=== PATIENT | female | born 1970 | race Caucasian/White ===

== ENCOUNTER 2023-02-05 12:37 | Outpatient (CLI) | payer BC, SELFPAY ==
--- NOTE | 2023-02-05 12:47 | ECG_ITS ---
Measurements Intervals [place] Rate: 95 P: 52 VT: 146 QRS: 1 QRSD: 81 T: 53 QT: 359 QTc: 452 Interpretive Statements SINUS RHYTHM LOW QRS VOLTAGE IN PRECORDIAL LEADS BORDERLINE T WAVE ABNORMALITY- ANTEROLAT/HIGH LAT LEADS BASELINE WANDER- I, II, AVR, AVL, AVF BORDERLINE ECG NO PREVIOUS ECG AVAILABLE FOR COMPARISON Electronically Signed On 02-05-2023 13:00:46 [employer] by Harpreet Benson D.O.
== END 2023-02-05 12:38 | disposition home or self-care (01) ==
PROVIDERS: PCP Family Medicine; Visit Provider Family Medicine
DX: R07.9 Chest pain, unspecified (principal); R94.31 Abnormal electrocardiogram [ECG] [EKG]
CPT/HCPCS: 93005

== ENCOUNTER 2023-03-05 11:52 | Outpatient (CLI) | payer BC, SELFPAY ==
[2023-03-05 12:50] LABS: Cholesterol 235 mg/dL (0-200); HDL Direct 52 mg/dL; Triglycerides 116 mg/dL (<150)
[2023-03-05 13:00] LABS: LDL Cholesterol Direct 136 mg/dL
== END 2023-03-05 11:53 | disposition home or self-care (01) ==
LOC: ANHLAB 11:54
PROVIDERS: PCP Family Medicine; Visit Provider Internal Medicine Cardiovascular Disease
DX: E78.5 Hyperlipidemia, unspecified (principal)
CPT/HCPCS: 36415; 80061

== ENCOUNTER 2023-03-13 08:35 | Outpatient (CLI) | payer BC, SELFPAY ==
--- NOTE | 2023-03-13 08:39 | EST_ITS ---
Patient Info Name: Millicent Jane Age: 52 years : 1970 Gender: Female Ht: 68 in Wt: 240 lbs BSA: 2.33 m2 HR: 84 bpm BP: 132 / 87 mmHg Heart Rhythm: Sinus Rhythm Technical Quality: Good Exam Date: 03/13/2023 8:59 AM Exam Location: [facility] Patient Status: Outpatient Admit Date: 03/13/2023 Staff Ordering Physician: Harpreet Benson DO Oil Well Engineer: Bianca Petersen RDCS Attending Provider: Referring Physician: Marcelino LAKE; Exam Type: CA stress echo Study Info Indications R07.9 - Chest pain, unspecified Treadmill exercise stress echocardiogram is performed. Summary 1. 1. Negative Chinedu exercise stress test for ischemic ST changes by ECG criteria. 2. 2. Good functional capacity, achieving 8.9 METs of workload. 3. 3. Appropriate HR response to exercise. 4. 4. Appropriate HR recovery at 1 minute post exercise. 5. 5. Negative stress echocardiogram for ischemia by wall motion analysis. 6. 6. Patient informed of the above results. Stress Echo Findings Left Ventricle Appropriate increase in LV endocardial thickening with systole. Appropriate augmentation of contractility with systole. No wall motion abnormality. Left Ventricle Normal LV systolic function, no wall motion abnormality. Protocol: Chinedu Stress ECG Details Stage: REST Duration (min): 1 min : 19 sec Speed (mph): 0.0 Grade (%): 0 HR (bpm): 83 SBP (mmHg): 132 DBP (mmHg): 87 METS: --- Stage: REST Duration (min): 15 min : 32 sec Speed (mph): 0.0 Grade (%): 0 HR (bpm): 94 SBP (mmHg): 132 DBP (mmHg): 87 METS: --- Stage: STAGE 1 Duration (min): 1 min : 0 sec Speed (mph): 1.7 Grade (%): 10 HR (bpm): 111 SBP (mmHg): 132 DBP (mmHg): 87 METS: --- Stage: STAGE 1 Duration (min): 2 min : 0 sec Speed (mph): 1.7 Grade (%): 10 HR (bpm): 118 SBP (mmHg): 132 DBP (mmHg): 87 METS: --- Stage: STAGE 1 Duration (min): 3 min : 0 sec Speed (mph): 1.7 Grade (%): 10 HR (bpm): 125 SBP (mmHg): 166 DBP (mmHg): 90 METS: --- Stage: STAGE 2 Duration (min): 1 min : 0 sec Speed (mph): 2.5 Grade (%): 12 HR (bpm): 129 SBP (mmHg): 166 DBP (mmHg): 90 METS: --- Stage: STAGE 2 Duration (min): 2 min : 0 sec Speed (mph): 2.5 Grade (%): 12 HR (bpm): 133 SBP (mmHg): 189 DBP (mmHg): 91 METS: --- Stage: STAGE 2 Duration (min): 3 min : 0 sec Speed (mph): 2.5 Grade (%): 12 HR (bpm): 139 SBP (mmHg): 189 DBP (mmHg): 91 METS: --- Stage: STAGE 3 Duration (min): 1 min : 0 sec Speed (mph): 3.4 Grade (%): 14 HR (bpm): 147 SBP (mmHg): 189 DBP (mmHg): 91 METS: --- Stage: STAGE 3 Duration (min): 1 min : 2 sec Speed (mph): 0.0 Grade (%): 0 HR (bpm): 148 SBP (mmHg): 189 DBP (mmHg): 91 METS: --- Stage: RECOVERY Duration (min): 0 min : 57 sec Speed (mph): 0.0 Grad
== END 2023-03-13 08:36 | disposition home or self-care (01) ==
PROVIDERS: PCP Family Medicine; Visit Provider Internal Medicine Cardiovascular Disease
DX: R07.9 Chest pain, unspecified (principal)
CPT/HCPCS: 93351

== ENCOUNTER → 2023-04-02 08:17 | Outpatient (CLI) | payer BC, SELFPAY ==
--- NOTE | ~2023-04-02 | MR_ITS ---
EXAMINATION: MR shoulder LT wo con DATE: 04/02/2023 09:15 INDICATION: Left shoulder impingement TECHNIQUE: Magnetic resonance imaging (MRI) of the left shoulder was performed without intravenous co ntrast. Sequences included axial PD-weighted FS FSE, coronal oblique PD-weighted FS FSE, coronal obli que T2-weighted FS FSE, sagittal PD-weighted FS FSE, and sagittal T1-weighted SE. COMPARISON: Left shoulder radiographs dated 02/17/2023 FINDINGS: Coracoacromial arch: The acromion undersurface is curved in morphology (type II) with tiny anterior subacromial spur. The coracoacromial ligament is normal. Mild acromioclavicular osteoarthritis. Rotator cuff: Mild to moderate supraspinatus and infraspinatus tendinopathy without discrete tear. The subscapulari s and teres minor tendons are normal. There is prominent feathery muscular edema of the supraspinatus and infraspinatus muscle bellies. There is mild atrophy at the posterior supraspinatus muscle belly with some architectural distortion to the muscle fibers proximally consistent with a moderate grade m uscle strain/partial tear and suggesting edema in the infraspinatus also related to muscle strain. No evident impinging lesions along the course of the suprascapular nerve to suggest denervation change related to impingement. Biceps tendon, glenoid labrum and glenohumeral cartilage: Long head of the biceps tendon is normal. Glenoid labrum is normal. Glenohumeral cartilage is normal. Fluid: Physiologic amount of fluid in the glenohumeral joint and biceps tendon sheath. No loose osteochondr al bodies. Small amount of fluid in the subacromial/subdeltoid bursa as well as in the subcoracoid bu rsa consistent with mild bursitis. Bones: Normal marrow signal with no edema, fracture or abnormal marrow replacing process. IMPRESSION: 1. Moderate grade supraspinatus muscle strain/partial tear and low-grade strain of the infraspinatus muscle. 2. Mild to moderate tendinopathy without discrete tear at the associated supraspinatus and infraspina tus tendons. 3. Mild subacromial/subdeltoid and subcoracoid bursitis. Reviewed, dictated and finalized at location L. IMPRESSION: 1. Moderate grade supraspinatus muscle strain/partial tear and low-grade strain of the infraspinatus muscle. 2. Mild to moderate tendinopathy without discrete tear at the associated supras pinatus and infraspinatus tendons. 3. Mild subacromial/subdeltoid and subcoracoid bursitis.
== END ==
PROVIDERS: PCP Family Medicine; Visit Provider Orthopaedic Surgery
DX: M25.812 Other specified joint disorders, left shoulder (principal); M75.52 Bursitis of left shoulder
CPT/HCPCS: 73221

== ENCOUNTER 2023-07-27 02:30 | Day surgery (SDC) | payer BC, SELFPAY ==
[2023-07-22 10:41] VITALS: BMI 36.5
--- NOTE | 2023-07-22 10:48 | PC.NURSE ---
Report to the Outpatient Waiting Room, entrance under the green pavilion located off [facility], at time 0600 on date 07/27/23. Planned Procedure Time: 0730. Time changes happen often and if your time is changed the preop area will call you the afternoon before. - You and your visitor will be asked to self-screen and do not enter if you have any COVID symptoms. - A mask is optional within the hospital at this time. Patients may have clear liquids (water, carbonated beverages, clear teas, apple juice) until 3 hours prior to surgery with a maximum of 20 ounces. - No food from midnight until time of surgery Take the following medications with a SIP of water the morning of surgery: CITALOPRAM, LEVOTHYROXINE DO NOT STOP ANY OF YOUR OTHER PRESCRIPTION MEDICATIONS PRIOR TO SURGERY ?EXCEPT THE FOLLOWING Medications to discontinue per physician: N/A Date to take last dose: N/A Please no make-up, nail serbian, hairspray, perfume, deodorant, or body powder the day of surgery. No jewelry (including any body piercings) or valuables the day of surgery, leave them at home. Please take a shower or bath the night before, or the morning of, surgery with an antibacterial soap. Wear comfortable, loose fitting clothing. - Jewelry must be removed prior to entering the operating room. Rings and piercings that are not removed may be cut off. - The hospital will not accept responsibility for valuables. - Please leave all valuables, including medications, at home the day of surgery. If you are going home after surgery, a licensed pile driver must drive you home. - NO public transportation without another adult if you receive anesthesia. - We recommend that an adult stay with you for 24 hours following discharge. - We also recommend that you do not drive, make important decision, drink alcoholic beverages, or take any drugs that were not prescribed by your health care provider for at least 24 hours after your discharge time. Follow any additional instructions given to you from your surgeon. If you or anyone in your household have experienced Covid symptoms in the past week, please notify your surgeon or the nurse liaison at the phone number below for possible testing. Telephone instructions given to PT - NI PEARSON and asked if any additional questions and then verbalized understanding. Patient advised to call surgeon office or pre surgery nurse liaison [phone] if any additional questions.
[2023-07-27] VITALS (8 sets, daily range): BP systolic 97–135; BP diastolic 64–88; PULSE 79–97; RESP 12–20; TEMP 36.1–36.8; O2SAT 95–99
[2023-07-27] MEDS: ACETAMINOPHEN 500 MG TABLET 1000 MG PO (06:46)
--- NOTE | 2023-07-27 06:47 | WPDANESEPPF ---
Anes - Initial Pre Proc Eval Procedure: Operation Date: 07/27/23 07:30 Proposed Procedures p Left Shoulder Arthroscopy, with Acromioplasty Distal Clavicle Excision - Moy Albarran MD Date/Time: 07/27/23 06:47 Surgeon: Moy Albarran MD Pre Op Diagnosis: left shoulder ac arthritis, impingement Patient Data Age: 53 Gender: F Height: 1.73 m Weight: 108.9 kg Allergies Allergy/AdvReac Type Severity Reaction Status Date / Time codeine Allergy Severe Vomiting Verified 07/27/23 06:42 Home Medications Medication Instructions Recorded Confirmed Type cetirizine 10 mg tablet (All Day 10 mg PO DAILY 12/29/19 07/27/23 History Allergy (cetirizine)) citalopram 40 mg tablet 40 mg PO DAILY #90 tabs 02/18/23 07/27/23 Rx levothyroxine 112 mcg tablet 112 mcg PO DAILY #90 tabs 03/19/23 07/27/23 Rx esomeprazole magnesium 20 mg 20 mg PO DAILY #90 caps 04/14/23 07/27/23 Rx capsule,delayed release (Nexium) Patient hx anesthesia problems: none Family hx anesthesia problems: none Results Review: All pre-operative results and documents have been reviewed as part of the pre-operative evaluation. [facility] Past Medical History Medical History Allergies Anxiety Arthritis of left acromioclavicular joint Environmental allergies BLANCA (generalized anxiety disorder) Hypothyroidism determined by thyroid function test Impingement of left shoulder Thyroid disorder Tonsil stone Surgical History Surgical History History of hysterectomy 2007 Family History Family History Mother Diabetes mellitus Ovarian cancer Cancer Hypertension Depression Heart disease Grandparent Family history of cardiovascular disease Acute myocardial infarction Cancer Diabetes mellitus Hypertension Depression Heart disease Other Family history of cardiovascular disease Acute myocardial infarction Diabetes mellitus Hypertension Depression Heart disease Father Heart disease Other Family history of migraine headaches Social History Social History Smoking status: Never smoker Second hand tobacco smoke exposure: No Alcohol intake: never Substance use: never Substance use type: does not use Lack of Transportation: No Lack of Food: Never True Current Housing: I Have Housing Concerned About Future Housing: No Difficulty Paying Gas/Electric Bills: No Difficulty Paying for Meds: No Currently Unemployed: No Education: High School Diploma/GED Difficulty w/ Childcare or Family Care: No Living arrangements: with family Occupation/Education: occupation Additional occupation/education comments: Window Decorator Gender identity (if verbalized by the patient): Female Spiritual care concerns: No Anes - Eval Final PreProcedure Day of Procedure 07/27/23 06:47 Patient weight: overweight Heart: regular rate and rhythm Lungs: clear to auscultation Airway: Mallampati scale class 1 Neurological: alert and oriented Last oral intake: >/= 8 hours ASA classification: III Emergent: no Anesthetic plan: proceed Anesthesia type and monitoring: general ETT and standard monitoring Results Review: All pre-operative results and documents have been reviewed as part of the pre-operative evaluation. Informed Consent: The patient's anesthetic plan and its attendant risks and benefits were discussed with the patient/family/POA. Questions were solicited and answers provided to the satisfaction of the patient/family/POA.
[2023-07-27] MEDS: LACTATED RINGERS 1,000 ML 30 ML IV CONT (07:00)
--- NOTE | 2023-07-27 07:00 | WPDANESPNB ---
Anes - Peripheral Nerve Block Date/Time: 07/27/23 07:00 I have discussed with the patient/family/POA the placement of a peripheral nerve block for post-operative pain management, including associated risks, benefits, complications, and side effects. Alternative methods of post-operative analgesia were detailed. Questions were solicited and answers provided to the satisfaction of the patient/family/POA. Time-Out: A pre-procedural Time-Out was completed immediately before starting the procedure and confirmed: Patient Identification, Site, Procedure, Patient Position and the Availability of Requisite Equipment. Clinical Indications: Acute post-operative pain management requested by the operative surgeon. Nerve Block Insertion Note Anes-nerve block: interscalene left Patient position: supine Skin prep: chlorhexidine Needle: 22 gauge, stimulating, insulated echogenic needle. Needle length: 50 mm Technique: ultrasound Injectate: bupivacaine 0.5% with epi 5 mcg/ml (30cc- no epi) Observations: tolerated well Complications: none Procedure start time:: 722 Procedure end time:: 726
[2023-07-27] MEDS: KETOROLAC 15 MG/ML VIAL (*BKC) IV PUSH (07:03)
--- NOTE | 2023-07-27 07:11 | WPDHPUPDATE1 ---
History and Physical Update Update Date/Time: 07/27/23 07:11 History and Physical has been reviewed, including an updated exam of the patient. There are NO changes in the patient's condition. Risks, benefits, and alternatives have been discussed and questions answered. Patient agrees to proceed with procedure.
[2023-07-27] MEDS: ceFAZolin 2 GM/D5W 50 ML 2 GM/50 ML BAG IVPB (07:30)
[2023-07-27] MEDS: BUPIVACAINE/EPINEPHRINE 0.25% 50 ML VIAL 10 ML INFILTRATE (08:10)
--- NOTE | 2023-07-27 09:17 | P.OP_ITS ---
Procedure Note - Detailed Date of Procedure 07/27/23 Pre-op Diagnosis left shoulder ac arthritis, impingement Post-op Diagnosis Other ( left shoulder impingement with AC joint arthritis and rotator cuff tear) Procedure Performed left shoulder acromioplasty, distal clavicle excision and repair of the rotator cuff Surgeon Moy Albarran MD Production Metal Sprayer Martine Em Anesthesia General and Regional Description of Procedure Patient was identified and proper site identified. In the preop holding area the anesthesia team performed a left upper extremity block. She was then taken to the operating room and transferred to the or table taking care to pad the torso and extremities. After general anesthetic induction and intubation, she was put in a semi beach chair position in the usual manner for a left shoulder procedure. Her head was secured taking care to neither rotate nor extend the head and neck. The left upper extremity was prepped and draped free in usual sterile fashion. The subcutaneous tissue in the area of the incision was injected with 10 cc of 0.25% Marcaine and epinephrine solution. An oblique anterior incision was made extending from the AC joint distally in line with the fibers of the deltoid. Subcutaneous tissue was sharply dissected down to the deltoid fascia. The deltoid was dissected off the anterior portion of the acromion in the distal end of the clavicle. A 2 cm split was made at the junction between the anterior and middle thirds of the deltoid. Using the microsagittal saw the last 8 mm of clavicle removed. The saw was also used to perform the acromioplasty and then the undersurface of the acromion was rasped smooth. The bursa was debrided off the shoulder. There was an erosive type tear in the supraspinatus measuring approximately 6-7 millimeters across and about a centimeter in length. This was debrided and then the tendon repaired back to the bone through a bone tunnel. This gave a heck repair which was stable as the shoulder was taken through range of motion. The wound was irrigated with sterile NaCl solution. The deltoid was repaired back to the acromion with 2. Ethibond suture passed through bone and the remainder of the deltoid repair carried out with 2. Vicryl. Subcutaneous tissue was reapproximated with 2. Strata fix and then tissue adhesive used for the skin. Sterile dressing was applied. There were no known intraoperative complications, and perioperative antibiotics were administered. Estimated Blood Loss -30.0 Drains No Packing No Pathology None sent Complications No immediate complications Condition Stable Disposition PACU [facility] Billing Surgery - Charge Forward: Surgery Billing ([id number], [id number])
[2023-07-27] MEDS: oxyCODONE HCL (*CRX) 5 MG TAB IR PO (10:14)
== END 2023-07-27 11:10 | disposition home or self-care (01) ==
PROVIDERS: PCP Family Medicine; Visit Provider Orthopaedic Surgery
PROC: (CPT 29805; principal; 2023-07-27 07:30)
DX: M75.102 Unspecified rotator cuff tear or rupture of left shoulder, not specified as traumatic (principal); M75.42 Impingement syndrome of left shoulder; M19.012 Primary osteoarthritis, left shoulder; G89.18 Other acute postprocedural pain; E03.9 Hypothyroidism, unspecified; F41.1 Generalized anxiety disorder
CPT/HCPCS: 23412; 23120; 64415; A4565; A9270; J0171; J0690; J1100; J1170; J1885; J2250; J2405; J2704; J3010; J7120